=== PATIENT | female | born 1980 | race Asian ===

== ENCOUNTER 2018-06-22 19:05 | Emergency (ER) | payer OTHER ==
[~2018-06-22] VITALS: Ht 167.6 cm; Wt 108.9 kg
--- NOTE | 2018-06-22 19:18 | NUR ---
ED Nurse Note: PT walked into ER stating she has a R foot injury that occured today at 1715. pt stated she spilled hot coffee on her foot at work. pulse and sensation felt on injured extremity. extremity presents with edema. pt is able to ambulate. cap refill is less than 3. no active bleeding noted.
--- NOTE | 2018-06-22 19:34 | Emergency Room Report ---
History of Present Illness General Chief Complaint: Lower Extremity Injury Source: Patient Present Illness HPI 38-year-old female with no significant past medical history . Here complaining of 2 hours of burning sensation pain in the right dorsal foot after a pot of coffee broke and felt all over her foot denies any broken glass and contact with the actual. This happened 2 hours ago at work. Patient has been icing it and elevating it and has used Neosporin for symptom relief. Has full sensation and range of motion in her right foot denies fever and chills, shortness of breath, chest pain, palpitation. Patient denies tingling and numbness. She is rating the pain 10 out of 10 without radiation. Denies any alleviating factors. Allergies: Coded Allergies: No Known Allergies (Unverified , 06/22/18) Patient History Past Medical History: see triage record Past Surgical History: none Pertinent Family History: none Last Menstrual Period: last month Now: No : 0 Para: 0 Immunizations: UTD Reviewed Nursing Documentation: PMH: Agreed; PSxH: Agreed Nursing Documentation-PMH Past Medical History: No Stated History Review of Systems All Other Systems: negative except mentioned in HPI Physical Exam Vital Signs Date Time Temp Pulse Resp B/P (MAP) Pulse Ox O2 Delivery O2 Flow Rate FiO2 06/22/18 19:10 98.1 90 13 157/96 99 Room Air Sp02 EP Interpretation: reviewed, normal General Appearance: normal inspection, well appearing, no apparent distress Head: normocephalic Eyes: bilateral eye normal inspection, bilateral eye PERRL ENT: normal ENT inspection, normal pharynx Neck: normal inspection, full range of motion Respiratory: normal inspection, lungs clear, no wheezing Cardiovascular #1: normal inspection, regular rate, rhythm, no murmur Cardiovascular #2: 2+ dorsalis pedis (R), 2+ dorsalis pedis (L) Gastrointestinal: normal inspection, non tender, soft Rectal: deferred Genitourinary: deferred Musculoskeletal: digits/nails normal, gait/station normal, normal range of motion, tender - first grade of second-degree burn of right foot no bullae noted and intact and warm to touch Neurologic: normal inspection, alert, oriented x3 Psychiatric: normal inspection, judgement/insight normal Skin: palpation normal, well hydrated, normal turgor, gallegos - First grade of second-degree burn, No fascia or no muscle and no bone involved Lymphatic: normal inspection, no adenopathy Medical Decision Making PA Attestation All diagnosis and treatment plans were reviewed and discussed with my supervising physician Dr. Calvert Diagnostic Impression: Primary Impression: Second degree burn of right foot ER Course 38-year-old female with no significant past medical history . Here complaining of 2 hours of burning sensation pain in the right dorsal foot after a pot of coffee broke and felt all over her foot denies any broken glass and contact with the actual. This happened 2 hours ago at work. Patient has been icing it and elevating it and has used Neosporin for symptom relief. Has full sensation and range of motion in her right foot denies fever and chills, shortness of breath, chest pain, palpitation. Patient denies tingling and numbness. She is rating the pain 10 out of 10 without radiation. Denies any alleviating factors. Ddx considered but are not limited to 3rd degree burn, 2nd degree burn, first degree burn Vital signs: are WNL, pt. is afebrile H&PE are most consistent with 2nd degree burn , BP elevated secondary to stress ORDERS: sulfadne, dressing, Keflex, Naproxen ED INTERVENTIONS: sulfadene and dressing DISCHARGE: At this time pt. is stable for d/c to home. Will provide printed patient care instructions, and any necessary prescriptions. Care plan and follow up instructions have been discussed with the patient prior to discharge. follow up with pcp for wound check in 2-3 days, elevate, ICE Last Vital Signs Date Time Temp Pulse Resp B/P (MAP) Pulse Ox O2 Delivery O2 Flow Rate FiO2 06/22/18 19:10 98.1 90 13 157/96 99 Room Air Disposition: HOME, SELF-CARE Condition: Stable Scripts Mupirocin (BACTROBAN CR) 15 Gm Cream..g. 1 APPLIC TOPIC THREE TIMES A DAY, #15 GM Prov: Bhavna Bahena 06/22/18 Naproxen* (NAPROXEN*) 500 Mg Tablet 500 MG ORAL TWICE A DAY, #30 TAB Prov: Bhavna Bahena 06/22/18 Cephalexin* (KEFLEX*) 500 Mg Capsule 500 MG ORAL EVERY 6 HOURS for 7 Days, #28 CAP Prov: Bhavna Bahena 06/22/18 Patient Instructions: Wound Care Additional Instructions: follow up with primary care provider for wound check.take medication as directed , ice the affected area and elevate. Bhavna Bahena Jun 22, 2018 19:34
[2018-06-22] MEDS ORDERED: CEPHALEXIN500 MG ORAL (19:36)
[2018-06-22] MEDS ORDERED: NAPROXEN500 M2 ORAL (19:36)
[2018-06-22] MEDS ORDERED: BACTROBAN15 GM TOPIC (19:36)
[2018-06-22 19:50] VITALS: BP 157/96
--- NOTE | 2018-06-22 19:50 | NUR ---
ED Nurse Note: pt d/c per ermd, pt given discharge and medication instructions. pt is aox4 and verbalized understanding. ID band removed. pt left ED with all belongings.
== END 2018-06-22 19:50 | disposition home or self-care (01) ==
LOC: EMR 19:40
DX: T25.221A Burn of second degree of right foot, initial encounter (principal); T79.9XXA Unspecified early complication of trauma, initial encounter; X12.XXXA Contact with other hot fluids, initial encounter; Y92.9 Unspecified place or not applicable
CPT/HCPCS: 99283